=== PATIENT | female | born 1985 | race Caucasian/White ===

== ENCOUNTER 2017-03-12 19:24 | Emergency (ER) | payer BC, OTHER ==
[~2017-03-12 19:24] MED LIST: MACROBID 100 M100 MG PO; ULTRAM 50MG50 MG PO; UNKNOWN ANTIBIOTIC
== END 2017-03-12 19:56 | disposition left against medical advice (07) ==
LOC: ER 19:24
DX: L02.92 Furuncle, unspecified (principal)

== ENCOUNTER 2017-03-12 22:02 | Emergency (ER) | payer BC, OTHER ==
[~2017-03-12] VITALS: Ht 162.6 cm; Wt 59.0 kg
[2017-03-13 04:50] VITALS: BP 122/76
[2017-03-13] MEDS ORDERED: TETANUS/DIPHTHERIA TOX ADULT 0.5 ML SYR IM ONE (05:00)
== END 2017-03-13 06:07 | disposition home or self-care (01) ==
LOC: ER 22:02
DX: L02.11 Cutaneous abscess of neck (principal); L02.414 Cutaneous abscess of left upper limb; L02.412 Cutaneous abscess of left axilla; L02.31 Cutaneous abscess of buttock; F17.210 Nicotine dependence, cigarettes, uncomplicated
CPT/HCPCS: 90714; 99282